=== PATIENT | male | born 1995 | race Two or more races ===

== ENCOUNTER 2017-09-06 16:18 | Emergency (ER) | payer SELFPAY ==
[~2017-09-06] VITALS: Ht 180.3 cm; Wt 96.6 kg
[~2017-09-06 16:18] MED LIST: CLEOCIN300 MG PO; ERYTHROMYC1 APPLICAT RIGHT EYE
[2017-09-06 21:59] VITALS: BP 136/92
== END 2017-09-06 22:00 | disposition home or self-care (01) ==
LOC: EME 16:18
DX: S93.602A Unspecified sprain of left foot, initial encounter (principal); X58.XXXA Exposure to other specified factors, initial encounter; Z98.890 Other specified postprocedural states
CPT/HCPCS: 73630; 99281; 99283